=== PATIENT | male | born 1945 | race Caucasian/White ===

== ENCOUNTER → 2020-04-08 | Outpatient (REF) | payer MEDICARE, OTHER ==
[2020-04-08 18:51] LABS: MALB URINE SIEMENS 27.4 MG/L; MAU/CREAT RATIO 17.4 MCG/MG (0.0-30.0)
== END ==
LOC: M LAB REF 17:09
PROVIDERS: ATTEND Nurse Practitioner Family
DX: E11.65 Type 2 diabetes mellitus with hyperglycemia (principal)